=== PATIENT | male | born 1985 | race Caucasian/White ===

== ENCOUNTER 2024-10-02 09:08 | Emergency (ER) | payer SELFPAY ==
[~2024-10-02] VITALS: Ht 170.2 cm; Wt 81.6 kg
[2024-10-02 09:38] VITALS: O2SAT 100
[2024-10-02] MEDS: TETRACAINE 0.5% OPHTH DROPS 4ML BOTHEYE ONE (11:15)
[2024-10-02] MEDS: FLUORESCEIN SODIUM 1MG/STRIP BOTHEYE ONE (11:15)
[2024-10-02] MEDS: IBUPROFEN 600MG TABLET PO ONE (13:35)
[2024-10-02] MEDS: PREDNISOLONE ACETATE 1% OPHTH DROPS 5ML BOTHEYE SCH (13:36)
[2024-10-02] MEDS: NEO/POLYMYX B SULF/DEXAMETH OPHTH OINT 3.5GM LEFTEYE SCH (13:36)
[2024-10-02] MEDS: CIPROFLOXACIN 0.3% OPHTH SOLN 2.5ML BOTHEYE ONE (13:36)
[2024-10-02] MEDS ORDERED: DOXY100T2 MT (14:16)
[2024-10-02] MEDS ORDERED: IBUP-2029 MT (14:16)
[2024-10-02] MEDS: CEFTRIAXONE SODIUM 500MG VIAL IM ONE (15:21)
[2024-10-02 15:24] VITALS: BP 150/78; PULSE 100; RESP 18; TEMP 37.05852; O2SAT 100
== END 2024-10-02 15:25 | disposition home or self-care (01) ==
LOC: ER 09:23
DX: S05.01XA Injury of conjunctiva and corneal abrasion without foreign body, right eye, initial encounter (principal); S05.02XA Injury of conjunctiva and corneal abrasion without foreign body, left eye, initial encounter; N45.1 Epididymitis; X58.XXXA Exposure to other specified factors, initial encounter; Y93.89 Activity, other specified; Y92.89 Other specified places as the place of occurrence of the external cause; Y99.8 Other external cause status
CPT/HCPCS: 99285; 93976; 76870; 96372; J0696